=== PATIENT | male | born 1960 | race Caucasian/White ===

== ENCOUNTER 2019-01-31 17:33 | Emergency (ER) | payer BC ==
[~2019-01-31] VITALS: Ht 177.8 cm; Wt 88.5 kg
[~2019-01-31 17:33] MED LIST: ANUSOL-HC30 GM RC; ASPIRIN; BACTRIM DS TAB1 EACH PO; L-LYSINE 5500 MG/1 T; PERCOCET 5-3251 EACH PO; REPLACE1 EACH PO; TAMSULOSIN HCL0.4 M1 PER TUBE
[2019-01-31] MEDS ORDERED: METOPROLOL TART25 MG PO (17:45)
[2019-01-31 17:59] LABS: URINE BILIRUBIN NEGATIVE (Negative); URINE BLOOD NEGATIVE (Negative); URINE CLARITY CLEAR; URINE COLOR YELLOW; URINE GLUCOSE-RANDOM NEGATIVE (Negative); URINE KETONES NEGATIVE (Negative); URINE LEUKOCYTES-REFLEX NEGATIVE (Negative); URINE NITRITE-REFLEX NEGATIVE (Negative); URINE PROTEIN NEGATIVE (Negative); URINE SPECIFIC GRAVITY 1.025 (1.005-1.030); URINE UROBILINOGEN 0.2 E.U./dl (0.2-1.0)
[2019-01-31 18:13] LABS: ABSOLUTE EOSINOPHILS 0.1 thou/uL (0.0-0.7); ABSOLUTE LYMPHOCYTES 2.7 thou/uL (0.8-5.3); ABSOLUTE MONOCYTES 0.8 thou/uL (0.0-1.2); ABSOLUTE NEUTROPHILS 5.8 thou/uL (1.6-8.1); BASOPHILS 0.5 %; HEMATOCRIT 46.3 % (42.0-52.0); HEMOGLOBIN 16.1 gm/dL (14.0-18.0); LYMPHOCYTES 28.4 %; MCH 31.5 pg (26.0-34.0); MCHC 34.9 g/dL (28.0-37.0); MCV 90.5 fL (80.0-100.0); MONOCYTES 8.3 %; MPV 9.3 fl. (7.2-11.1); NUCLEATED RBCS 0 /100WBC; PLATELET COUNT* 202 thou/uL (150-400); POLYS 61.8 %; RBC 5.12 mil/uL (4.50-6.00); RDW-CV 12.8 % (10.5-14.5); WBC 9.4 thou/uL (4.0-11.0)
[2019-01-31 18:21] LABS: CALCIUM 9.3 mg/dL (8.5-10.1); CREATININE 1.1 mg/dL (0.6-1.3); POTASSIUM 4.1 mmol/L (3.5-5.1)
[2019-01-31 18:25] LABS: ALBUMIN 4.4 g/dL (3.4-5.0); TOTAL BILIRUBIN 0.9 mg/dL (<0.1-1.0); TOTAL PROTEIN 7.8 g/dL (6.4-8.2)
[2019-01-31] MEDS ORDERED: TRAMADOL 50 MG50 MG PO (19:41)
[2019-01-31] MEDS ORDERED: FLOMAX0.4 MG PO (19:41)
[2019-01-31 19:54] VITALS: BP 120/78
== END 2019-01-31 19:55 | disposition home or self-care (01) ==
LOC: M.ERS 17:33
PROVIDERS: Nurse Practitioner Psychiatric/Mental Health
DX: N20.1 Calculus of ureter (principal); Z87.442 Personal history of urinary calculi